=== PATIENT | female | born 1985 | race Caucasian/White ===

== ENCOUNTER 2019-12-19 13:45 | Emergency (ER) | payer OTHER, SELFPAY ==
--- NOTE | ~2019-12-19 | XR_ITS ---
EXAMINATION: XR chest 2V EXAM DATE: 12/19/2019 14:26 INDICATION: Cough and fever. TECHNIQUE: Frontal and lateral projections of the chest obtained and reviewed. There is no prior deborah dy for comparison. FINDINGS: The lungs are clear. There are no pleural effusions. The cardiomediastinal silhouette is within normal limits. There is no pneumothorax suspected. The bones and soft tissues are unremarkab le. IMPRESSION: Normal chest x-ray exam. Reviewed, dictated and finalized at location A. [employer]ESS DEVELOPER IMPRESSION: Normal chest x-ray exam.
--- NOTE | 2019-12-19 13:56 | ED.URI ---
HPI - URI/Sore Throat General Chief Complaint: Upper Respiratory Infection Stated Complaint: cough/weak/congestion Time Seen by Provider: 12/19/19 14:18 Source: patient and RN notes reviewed Mode of arrival: ambulatory Limitations: no limitations History of Present Illness HPI Narrative: 34-year-old female presents with concern for cough, congestion, fatigue, general malaise, sweats, chills. Reports symptoms started with a mild cough on Wednesday, however yesterday she began to have chills, sweats, fever, malaise. MD elicited complaint: cough Related Data Home Medications Medication Instructions Recorded Confirmed bupropion HCl 75 mg PO DAILY 12/19/19 12/19/19 clonazepam 2 mg DAILY 12/19/19 12/19/19 levothyroxine 100 mcg DAILY 12/19/19 12/19/19 Allergies Allergy/AdvReac Type Severity Reaction Status Date / Time No Known Allergies Allergy Unknown Verified 11/19/16 10:01 Review of Systems Review of Systems: Narrative: CONSTITUTIONAL: Reports malaise, chills, sweats, or fever. EYES: Denies visual changes, redness, or discharge. ENT: Reports rhinorrhea, congestion, and sore throat. Denies sinus pain, otalgia CARDIOVASCULAR: Denies chest pain, palpitations, or edema. RESPIRATORY: Reports cough. Denies dyspnea. GASTROINTESTINAL: Denies abdominal pain, nausea, vomiting, diarrhea SKIN: Denies rash or itching. MUSCULOSKELETAL: Reports myalgia. NEUROLOGIC: Reports headache. All systems reviewed & are unremarkable except as noted in HPI and below PMFSH Family History Family History (Updated 08/02/17 @ 13:14 by DOCTOR UNKNOWN) Father Family history of mental disorder Grandparent Family history of mental disorder Depression Cerebrovascular accident Diabetes mellitus Mother Family history of malignant neoplasm Social History Social History Smoking status: Never smoker Alcohol intake: never Gender identity (if verbalized by the patient): Female Comments At time of signature, agree with nursing past medical, surgical, social and family history. There is no relevant family history pertinent to the presenting complaint Exam Narrative: Exam Narrative: GENERAL: Nontoxic-appearing, well-nourished, and in no acute distress. HEAD: Normocephalic EYES: PERRLA, conjunctivae clear ENT: Nares clear, turbinates edematous and erythematous, clear discharge. Mucous membranes moist. TM pearly anand with dull light reflex bilaterally; no tragal tenderness. Oropharynx erythematous without lesions. Tonsils not enlarged and without exudate, no drooling, no hoarseness, no trismus. NECK: Supple. No lymphadenopathy CHEST: Clear to auscultation, breath sounds equal. No wheezing, rhonchi, rales, or stridor. No respiratory distress, speaks in full sentences. Cough noted HEART: Regular rate and rhythm. No murmur heard. Normal peripheral pulses. SKIN: Warm, clammy, no rash. NEURO: Alert and oriented x3. PSYCH: Normal mood and affect Course Course Emergency Course: Patient is aware of diagnosis, understands and agrees to treatment plan. Anticipatory guidance given. Patient agrees to follow-up as directed and is aware of reasons to seek care at the emergency department. Portions of this record may have been created with voice recognition software Vital Signs Vital signs: Vital Signs Temperature 103.3 F H 12/19/19 14:11 Pulse Rate 123 H 12/19/19 14:11 Respiratory Rate 20 12/19/19 14:11 Blood Pressure 119/79 12/19/19 14:11 Pulse Oximetry 97 12/19/19 14:11 Temperature 103.3 F H 12/19/19 14:11 Pulse Rate 123 H 12/19/19 14:11 Respiratory Rate 20 12/19/19 14:11 Blood Pressure 119/79 12/19/19 14:11 Pulse Oximetry 97 12/19/19 14:11 Reviewed. MDM - URI/Sore Throat MDM Narrative Medical decision making narrative: Differential diagnosis considered: Strep pharyngitis, allergic rhinitis, upper respiratory tract infection, sinusitis, rhinosinusitis, nasopharyngitis. viral pharyngitis, otitis media, otiti
[2019-12-19 14:11] VITALS: BP 119/79; PULSE 123; RESP 20; TEMP 39.6; O2SAT 97
[2019-12-19 14:50] VITALS: PULSE 116; RESP 20; TEMP 38.6
== END 2019-12-19 14:55 | disposition home or self-care (01) ==
PROVIDERS: Emergency Provider Nurse Practitioner; PCP Family Medicine
DX: R05 Cough (principal); R53.83 Other fatigue; R50.9 Fever, unspecified; J34.89 Other specified disorders of nose and nasal sinuses; J02.9 Acute pharyngitis, unspecified; F32.9 Major depressive disorder, single episode, unspecified; F41.9 Anxiety disorder, unspecified; E03.9 Hypothyroidism, unspecified
CPT/HCPCS: 71046; 86308; 87081; 87804; 87880; 99213; G0463

== ENCOUNTER 2021-05-01 21:24 | Emergency (ER) | payer OTHER, SELFPAY ==
[2021-05-01 21:29] VITALS: BP 148/92; PULSE 104; RESP 16; TEMP 36.8; O2SAT 96
--- NOTE | 2021-05-01 21:45 | ED.GENADULT ---
HPI - General Adult General Chief complaint: Skin/Abscess/Foreign Body Stated complaint: Rash on face and arms Time Seen by Provider: 05/01/21 21:44 Source: patient Mode of arrival: ambulatory Limitations: no limitations History of Present Illness HPI narrative: Patient just returned from a trip to [place] and has crusting blisters across her upper lip and face, she said they did do tingle itch. She also has a raised rash on both of her arms. She did use the sunscreen that is provided by the facility she used it on her whole body and only her arms seem to be affected. they were out of the water more than the rest of her body. She states she did have a history of fever blisters as a child but none as an adult. She denies any fever, any difficulty breathing. Onset (ago): day(s) Treatments prior to arrival: NSAID Related Data Home Medications Medication Instructions Recorded Confirmed bupropion HCl 75 mg PO DAILY 12/19/19 12/19/19 clonazepam 2 mg DAILY 12/19/19 12/19/19 levothyroxine 100 mcg DAILY 12/19/19 12/19/19 Allergies Allergy/AdvReac Type Severity Reaction Status Date / Time No Known Allergies Allergy Unknown Verified 05/01/21 21:25 Review of Systems Review of Systems: All systems reviewed & are unremarkable except as noted in HPI and below PMFSH Family History Family History Father Family history of mental disorder Grandparent Family history of mental disorder Depression Cerebrovascular accident Diabetes mellitus Mother Family history of malignant neoplasm Social History Social History Smoking status: Never smoker Alcohol intake: never Gender identity (if verbalized by the patient): Female Exam Const: General: no acute distress and alert Orientation/consciousness: patient oriented x3 HENMT: Mouth: Yes Normal oral and palatal mucosa present and Yes other (crusted vesicular lesions on labial fold on right, and at bubba border) Resp: Effort & Inspection: normal respiratory effort Auscultation: clear to auscultation bilaterally Skin: Rashes: rashes noted (fine rough rash, skin pink both arms. ) Extrem: General: no clubbing, cyanosis or edema Course Vital Signs Vital signs: Vital Signs Temperature 36.8 C 05/01/21 21:29 Pulse Rate 104 H 05/01/21 21:29 Respiratory Rate 16 05/01/21 21:29 Blood Pressure 148/92 H 05/01/21 21:29 Pulse Oximetry 96 05/01/21 21:29 Temperature 36.8 C 05/01/21 21:29 Pulse Rate 104 H 05/01/21 21:29 Respiratory Rate 16 05/01/21 21:29 Blood Pressure 148/92 H 05/01/21 21:29 Pulse Oximetry 96 05/01/21 21:29 Medical Decision Making MDM Narrative Medical decision making narrative: lesions appear to to be HSV 1. Will treat with valtrex due to size and pain. Her arms are most likely significant sun burn, will treat with topical steroid. Vital Signs Vital Signs: Vital Signs Temperature 36.8 C 05/01/21 21:29 Pulse Rate 104 H 05/01/21 21:29 Respiratory Rate 16 05/01/21 21:29 Blood Pressure 148/92 H 05/01/21 21:29 Pulse Oximetry 96 05/01/21 21:29 Temperature 36.8 C 05/01/21 21:29 Pulse Rate 104 H 05/01/21 21:29 Respiratory Rate 16 05/01/21 21:29 Blood Pressure 148/92 H 05/01/21 21:29 Pulse Oximetry 96 05/01/21 21:29 Discharge Plan Discharge Clinical Impression: Herpes simplex virus type 1 (HSV-1) dermatitis, Burn from the sun Patient Disposition: Home, Self-Care Condition: Stable Instructions: Antibiotic Form, Sunburn (ED), Oral Herpes Simplex Virus Infections (ED) Additional Instructions: Given an initial dose of the antiviral agent Valtrex in the emergency room, you need 1 more dose tomorrow at approximately 10 AM. This will help shorten the course of the lesions. Avoid sun exposure. You may apply the steroid cream to your arms as directed and once again
[2021-05-01] MEDS: valACYclovir HCL 500 MG TABLET 2000 MG PO (22:32)
[2021-05-01 22:40] VITALS: BP 110/84; PULSE 87; RESP 16; O2SAT 98
== END 2021-05-01 22:35 | disposition home or self-care (01) ==
PROVIDERS: Emergency Provider Emergency Medicine; PCP Family Medicine
DX: B00.9 Herpesviral infection, unspecified (principal); L30.9 Dermatitis, unspecified; L55.9 Sunburn, unspecified
CPT/HCPCS: 99283; A9270

== ENCOUNTER 2023-05-18 14:01 | Outpatient (CLI) | payer OTHER, SELFPAY ==
--- NOTE | ~2023-05-18 | XR_ITS ---
XR thoracic spine 3V DATE: 05/18/2023 14:28 INDICATION: Back pain TECHNIQUE: AP, lateral, swimmer views COMPARISON: None FINDINGS: Severe degenerative disc disease and uncovertebral joint spurring at C5-6. Mild thoracic dextroscoliosis. No fracture or dislocation or bone destruction of the thoracic spine. No paraspinal soft tissue thick ening. Minimal degenerative spurring of the thoracic spine. IMPRESSION: Mild thoracic dextroscoliosis and minimal degenerative spurring Severe degenerative disc disease and prominent bilateral uncovertebral joint spurring at C5-6 Reviewed, dictated and finalized at location L. IMPRESSION: Mild thoracic dextroscoliosis and minimal degenerative spurring Severe degenerative disc disease and prominent bilateral uncovertebral joint sp urring at C5-6
--- NOTE | ~2023-05-18 | XR_ITS ---
XR lumbar spine 2-3V DATE: 05/18/2023 14:28 INDICATION: Back pain TECHNIQUE: AP, lateral, coned lateral lumbosacral views COMPARISON: None FINDINGS: Minimal levoscoliosis of the lumbar spine. Normal alignment of the lumbar spine. No fractur e or bone destruction or spondylolisthesis is evident. The lumbar pedicles are intact. Mild loss of interspace height at L4-5. Moderate loss of interspace height and vacuum phenomenon at L 5-S1. The sacral iliac joints are intact. There is a prominent amount of fecal material throughout the colon. IMPRESSION: Moderate degenerative disc disease at L4-5 and L5-S1 Prominent amount of fecal material throughout the colon Reviewed, dictated and finalized at location L.
== END 2023-05-18 14:02 | disposition home or self-care (01) ==
LOC: ANHIMG 14:04
PROVIDERS: PCP Family Medicine; Visit Provider Family Medicine
DX: M51.36 Other intervertebral disc degeneration, lumbar region (principal); M41.9 Scoliosis, unspecified
CPT/HCPCS: 72072; 72100; 97110

== ENCOUNTER 2023-05-18 14:46 | Emergency (ER) | payer OTHER, SELFPAY ==
[2023-05-18 14:53] VITALS: BP 112/65; PULSE 67; RESP 16; TEMP 36.3; O2SAT 99
--- NOTE | 2023-05-18 14:54 | ED.SKABFB ---
HPI - Skin/Abscess/Foreign Bdy General Chief complaint: Skin/Abscess/Foreign Body Stated complaint: Rash Time Seen by Provider: 05/18/23 14:54 Source: patient Mode of arrival: ambulatory Limitations: no limitations History of Present Illness HPI narrative: 37-year-old female presents with complaint of rash to left arm, left leg, right leg for approximately 1 week. States started to left arm. Thought she was bit by mosquito. rash Sudeep significantly worse. Complaining of itching, no pain. Afebrile. All systems reviewed and negative except as noted above. Related Data Home Medications Medication Instructions Recorded Confirmed levothyroxine 100 mcg tablet 100 mcg DAILY 12/19/19 05/18/23 alprazolam 1 mg tablet 1 mg PO DAILY PRN anxiety 04/13/23 05/18/23 methadone 10 mg tablet 70 mg PO DAILY 04/13/23 05/18/23 trazodone 50 mg tablet 50 mg PO DAILY PRN Insomnia 04/13/23 05/18/23 levonorgestrel 21 mcg/24 hours (8 See Rx Instructions .Route .COMPLEX 05/18/23 05/18/23 yrs) 52 mg intrauterine device (Mirena) Allergies Allergy/AdvReac Type Severity Reaction Status Date / Time No Known Allergies Allergy Unknown Verified 05/18/23 14:49 Review of Systems Review of Systems: CONSTITUTIONAL: Denies fever, chills, or sweats. EYES: Denies visual changes, redness, or discharge. ENT: Denies rhinorrhea, congestion, sore throat, or otalgia. CARDIOVASCULAR: Denies chest pain, palpitations, or edema. RESPIRATORY: Denies cough or dyspnea. GASTROINTESTINAL: Denies abdominal pain, nausea, vomiting, or diarrhea. GENITOURINARY: Denies dysuria or hematuria. SKIN: Reports rash, itching bilateral lower extremities, left upper arm.. MUSCULOSKELETAL: Denies back pain, joint pain, or myalgia. NEUROLOGIC: Denies headache, numbness, or weakness. PSYCHIATRIC: Denies anxiety or depression. All other systems reviewed are negative, except as documented in HPI. [facility] Past Medical History Medical History Anxiety Depression Hypothyroidism Insomnia Mid back pain Opioid use disorder Surgical History Surgical History History of 2006, 2007 Family History Family History Father Family history of mental disorder Alcohol abuse Asthma Adrenal gland cancer Grandparent Family history of mental disorder Depression Cerebrovascular accident Diabetes mellitus Alcohol abuse Hypertension Heart disease Mother Family history of malignant neoplasm Alcohol abuse Depression Sibling Asthma Depression Daughter Asthma Depression Social History Social History Smoking status: Never smoker Alcohol intake: current Alcohol use details: rarely Substance use: never Substance use type: does not use Lack of Transportation: No Lack of Food: Never True Current Housing: I Have Housing Concerned About Future Housing: No Difficulty Paying Gas/Electric Bills: No Difficulty Paying for Meds: No Currently Unemployed: No Education: Trade/Vocational Certificate Difficulty w/ Childcare or Family Care: No Living arrangements: with family Occupation/Education: occupation Gender identity (if verbalized by the patient): Female Agree to blood products: Yes Comments At time of signature, agree with nursing past medical, surgical, social and family history. There is no relevant family history pertinent to the presenting complaint. Exam Narrative: GENERAL: This is a well-nourished, well-developed patient, in no apparent distress. HEAD: normocephalic, atraumatic. EYES: PERRL. Sclera clear/white. Vision is grossly intact. EARS: External ears normal NOSE: External nose normal NECK: Neck supple, non-tender without lymphadenopathy, masses or thyromegaly. CARDIOVASC
== END 2023-05-18 15:14 | disposition home or self-care (01) ==
PROVIDERS: Emergency Provider Nurse Practitioner Family; PCP Family Medicine
DX: L50.9 Urticaria, unspecified (principal); E03.9 Hypothyroidism, unspecified; F41.9 Anxiety disorder, unspecified; F32.A Depression, unspecified
CPT/HCPCS: 99213; G0463

== ENCOUNTER 2023-06-22 12:30 | Outpatient (RCR) | payer OTHER, SELFPAY ==
--- NOTE | 2023-05-11 08:49 | PTOPEVAL1 ---
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; have order for xray, not done yet; have not had PT in the past; ACTIVITY: work at [employer]; single mom with 3 children; doing all home and work tasks, with increased pain; Reported Pain Level Pain Score Self Report Additional Pain Score Comments pain range in the past week 2-7/10; burning, shooting pain; intermittent radicular into L LE to toes; stops me and cannot move; increase pain: sitting and then stand up; decrease pain: ibuprofen, epsom salt baths, stim unit; salon pas patches; use heat/ice PRN- heat helps more; with sleeping, awaken due to back pain 2x/wk; sleep in all positions--change constantly; Oswestry self assessment functional score of 30% limitation in activity level Assessment PT Clinical Summary Piper has the diagnosis of back pain. She reports chronic pain with intermittent radicular into L LE to toes. She is active, working 2 jobs and keeping up with 3 children. Pain increases with activity, transfer sit to stand and sleeping is disrupted. Self assessment score of 30% limitation in functioning. With the evaluation: she has poor standing posture of trunk and hips; standing extension of trunk more painful than flexion; tightness of L piriformis and anterior hip-quad; decreased strength and stability of trunk. Skilled PT services are indicated for modalities to decrease pain, therapeutic exercises to stretch and strengthen trunk and hips, with education for home exercises, posture and body mechanics. Plan of Care Interventions Hot Pack/Cold Pack,Manual Therapy,Mechanical Traction,Patient Education,Therapeutic Activities,Therapeutic Exercise,Ultrasound,Other Other Interventions taping, IASTM PT Services Indicated Yes Treatment Frequency and 1-2x/wk for 6 weeks, due to her work schedule, Duration cannot ma
--- NOTE | 2023-05-14 08:18 | OPREHPOC ---
Outpatient Therapy Plan of Care This is a Multidisciplinary Plan of Care that may contain components documented by all disciplines (PT, OT, and ST.) PT Problem 1 PT Problem #1 Knowledge Deficit PT Goal 1 Goal 1* indep with home exercise program 2* demonstrate correct lifting technique for floor /waist lifting PT Problem 2 PT Problem #2 Pain PT Goal 1 Goal 1* pain rating of 4/10 at worst 2* pt report times of NO pain 3* self assessment Oswestry score of 20% limitation 4* with sleeping, no awakening due to pain in back PT Problem 3 PT Problem #3 Impaired Flexibility PT Goal 1 Goal 1* with supine piriformis stretch, pt report L = R 2* prone knee flexion stretch to 130'/ant hip-quad length PT Problem 4 PT Problem #4 Impaired Strength PT Goal 1 Goal 1* pt able to perform mat strengthening exercises of trunk and hips 20 reps with good stability
--- NOTE | 2023-05-25 12:54 | PCPTNOTE ---
Pt was called into work and forgot to call and cancel her therapy appt.
--- NOTE | 2023-06-08 16:38 | PCPTNOTE ---
Pt no showed appt today.
--- NOTE | 2023-06-22 13:19 | PTOPPROG ---
Assessment and note entered by Shawna Knowles, PT Evaluation Information Assessment Status Progress Diagnosis low back pain Onset Dec 2022 Subjective Information Dori reports: back is about the same; stretches do help some; has been watching her back position have been busy doing alot of home cleaning and been more active the past week; has joined the gym--treadmill, weights for arms; PAIN range in the past week of 4-8/10; R and L lumbar; intermittent into L posterior leg to mid calf--shoots with sit to standing position changes --have to stop and brace herself due to bad pain; with sleeping, awaken due to back pain 2x/night; sit and standing about 30 min then pain worse; Assessment PT Clinical Summary Dori has received 5 PT sessions. She did not show for 2 scheduled appointments. Compared to the initial evaluation: pain rating was 2-7/10 and now 4-8/10- has been doing more home cleaning and lifting; reported sleeping tolerance is the same; radicular pain is less, was to toes, now to mid calf; improved posture and position of trunk with increased awareness; increase trunk and hip strength; increased flexibility of R anterior hip-quads; Self assessment functional Oswestry score is worse, from 30% to 50% limitation activity level. Education and good understanding of HEP, pain management techniques. The goals were partially met. Continue therapy treatment. Plan of Care Interventions Hot Pack/Cold Pack,Manual Therapy,Mechanical Traction,Patient Education,Therapeutic Activities,Therapeutic Exercise,Ultrasound,Other Other Interventions taping, IASTM PT Services Indicated Yes Treatment Frequency and 1x/wk for 5 weeks, due to her work & schedule can Duration only attend 1x/wk These treatments will address the objective and functional deficits as defined above. The patient will be advanced safely and appropriately in order for the patient to progress towards his/her prior level of function. Additional exercises will be introduced and as well as a comprehensive home exercise program upon discharge, if needed, ?to ensure carryover of functional gains achieved in the clinic. This treatment plan has been reviewed and agreement upon by the patient.
--- NOTE | 2023-06-22 13:20 | OPREHPOC ---
Outpatient Therapy Plan of Care This is a Multidisciplinary Plan of Care that may contain components documented by all disciplines (PT, OT, and ST.) PT Problem 1 PT Problem #1 Knowledge Deficit PT Goal 1 Goal 1* indep with home exercise program 2* demonstrate correct lifting technique for floor /waist lifting Progress Met Comment 06-22-23 met goals continue towards goal 1, to progress education for HEP PT Problem 2 PT Problem #2 Pain PT Goal 1 Goal 1* pain rating of 4/10 at worst 2* pt report times of NO pain 3* self assessment Oswestry score of 20% limitation 4* with sleeping, no awakening due to pain in back Progress Not Met Comment 06-22-23 goals not met; pain range of 4-8/10; self assessment score 50%; awaken 2x/night continue towards goals PT Problem 3 PT Problem #3 Impaired Flexibility PT Goal 1 Goal 1* with supine piriformis stretch, pt report L = R 2* prone knee flexion stretch to 130'/ant hip-quad length Progress Partially Met Comment 06-22-23 met goal 2 continue towards goal 1 PT Problem 4 PT Problem #4 Impaired Strength PT Goal 1 Goal 1* pt able to perform mat strengthening exercises of trunk and hips 20 reps with good stability Progress Partially Met Comment 06-22-23 improved with exercises reps 11-20 reps continue towards goal
--- NOTE | 2023-07-06 15:42 | PCPTNOTE ---
Pt NS this afternoons visit.
--- NOTE | 2023-07-13 15:35 | PCPTNOTE ---
Pt NS for the 2nd visit today.
--- NOTE | 2023-07-20 16:21 | PCPTNOTE ---
Pt no showed visit again today.
--- NOTE | 2023-07-26 15:56 | PTOPDC ---
Assessment and note entered by Shawna Knowles, PT Evaluation Information Assessment PT Clinical Summary PHYSICAL THERAPY DISCHARGE Dori has received 5 PT sessions from May 11 to Jun 22, then stopped attending therapy. Therefore, she will be discharged from PT at this time. The goals were not addressed. Plan of Care PT Services Indicated No
== END 2023-07-27 11:41 | disposition home or self-care (01) ==
LOC: ANHPT 12:30
PROVIDERS: PCP Family Medicine; Visit Provider Family Medicine
DX: M54.9 Dorsalgia, unspecified (principal); M54.50 Low back pain, unspecified
CPT/HCPCS: 97110; 97161; 97530; 99199

== ENCOUNTER 2023-09-27 08:46 | Emergency (ER) | payer OTHER, SELFPAY ==
[2023-09-27 09:06] VITALS: BP 113/75; PULSE 77; RESP 16; TEMP 36.1; O2SAT 98
--- NOTE | 2023-09-27 09:45 | ED.URI ---
HPI - URI/Sore Throat General Chief Complaint: Upper Respiratory Infection Stated Complaint: Sore Throat Time Seen by Provider: 09/27/23 09:35 Source: patient and RN notes reviewed Mode of arrival: ambulatory Limitations: no limitations History of Present Illness HPI Narrative: Patient presents today with a 5 day history of bilateral ear pain, postnasal drip, sore throat, and headache. She currently rates her pain 6/10 and has tried ibuprofen, Flonase, Mucinex, DayQuil, NyQuil without much relief. Related Data Home Medications Medication Instructions Recorded Confirmed alprazolam 1 mg tablet 1 mg PO DAILY PRN anxiety 04/13/23 09/27/23 trazodone 50 mg tablet 50 mg PO DAILY PRN Insomnia 04/13/23 09/27/23 levonorgestrel 21 mcg/24 hours (8 See Rx Instructions .Route .COMPLEX 05/18/23 09/27/23 yrs) 52 mg intrauterine device (Mirena) Allergies Allergy/AdvReac Type Severity Reaction Status Date / Time No Known Allergies Allergy Unknown Verified 09/27/23 09:11 Review of Systems Review of Systems: CONSTITUTIONAL: Denies body aches, fever, chills, or sweats. EYES: Denies visual changes, redness, or discharge. ENT: Denies rhinorrhea, congestion. + postnasal drip, sore throat, bilateral ear pain CARDIOVASCULAR: Denies chest pain, palpitations, or edema. RESPIRATORY: Denies cough or dyspnea. GASTROINTESTINAL: Denies abdominal pain, nausea, vomiting, or diarrhea. GENITOURINARY: Denies dysuria or hematuria. SKIN: Denies rash, itching, or wounds. MUSCULOSKELETAL: Denies back pain, joint pain, or myalgia. NEUROLOGIC: Denies numbness, tingling, or weakness.+ headache PSYCH: Denies depression or anxiety. [facility] Past Medical History Medical History Anxiety Degenerative joint disease (DJD) of lumbar spine Depression Hypothyroidism Insomnia Mid back pain Opioid use disorder Surgical History Surgical History History of 2006, 2007 Family History Family History Father Family history of mental disorder Alcohol abuse Asthma Adrenal gland cancer Grandparent Family history of mental disorder Depression Cerebrovascular accident Diabetes mellitus Alcohol abuse Hypertension Heart disease Mother Family history of malignant neoplasm Alcohol abuse Depression Sibling Asthma Depression Daughter Asthma Depression Social History Social History Smoking status: Never smoker Alcohol intake: current Alcohol use details: rarely Substance use: never Substance use type: does not use Lack of Transportation: No Lack of Food: Never True Current Housing: I Have Housing Concerned About Future Housing: No Difficulty Paying Gas/Electric Bills: No Difficulty Paying for Meds: No Currently Unemployed: No Education: Trade/Vocational Certificate Difficulty w/ Childcare or Family Care: No Living arrangements: with family Occupation/Education: occupation Gender identity (if verbalized by the patient): Female Agree to blood products: Yes Comments At time of signature, I have reviewed and agree with nursing past medical, surgical, social and family history unless otherwise noted. Please see nursing chart for further information. There is no relevant family history pertinent to the presenting complaint Exam Narrative: GENERAL: Mildly ill-appearing, well-nourished, and in no acute distress. HEAD: Normocephalic, atraumatic. EYES: EOMI. No redness or drainage. Conjunctivae normal. ENT: Mucous membranes pink and moist. Nares clear. No rhinorrhea. TMs normal bilaterally. Throat mildly erythematous. Tonsils 3+ without exudate. Uvula midline. NECK: Normal AROM. Supple. Bilateral tonsillar lymphadenopathy CHEST: No respirato
== END 2023-09-27 09:52 | disposition home or self-care (01) ==
PROVIDERS: Emergency Provider Nurse Practitioner; PCP Family Medicine
DX: J02.9 Acute pharyngitis, unspecified (principal); E03.9 Hypothyroidism, unspecified; F41.9 Anxiety disorder, unspecified; F32.A Depression, unspecified; Z79.899 Other long term (current) drug therapy
CPT/HCPCS: 87081; 87880; 99213; G0463

== ENCOUNTER 2024-02-06 11:14 | Outpatient (CLI) | payer OTHER, SELFPAY ==
--- NOTE | ~2024-02-06 | MR_ITS ---
MRI of the lumbar spine Clinical History: Back pain Technique: Axial T2-weighted images, and sagittal T1-weighted, T2-weighted, and T2 fat-sat images wer e acquired. Findings: There is no fracture or subluxation of the lumbar spine. Vertebral bodies maintain normal h eight and alignment. No suspicious bone marrow signal abnormality seen. At L1-L2, there is no disc bulge or herniation. There is minimal facet arthropathy. No central canal stenosis or neural foraminal narrowing. At L2-L3, there is mild degenerative disc narrowing. No disc bulge. There is mild facet arthropathy. No central canal stenosis or neural foraminal narrowing. L3-L4, there is minimal disc bulge and mild facet arthropathy. No central canal stenosis or neural fo raminal narrowing. At L4-L5, there is mild disc bulge and moderate facet arthropathy. No central canal stenosis. There i s mild bilateral neural foraminal narrowing. L5-S1, there is moderate degenerative disc narrowing. There is mild disc bulge and moderate to advanc ed facet arthropathy. No central canal stenosis. There is moderate to severe left neural foraminal na rrowing, and moderate right neural foraminal narrowing. Paravertebral soft tissues are unremarkable. Impression: Moderate degenerative spondylosis at L5-S1. Mild degenerative changes in the remainder of the lumbar spine. Reviewed, dictated and finalized at [facility]. Impression: Moderate degenerative spondylosis at L5-S1. Mild degenerative changes in the remainder of the lumbar spine.
== END 2024-02-06 11:15 | disposition home or self-care (01) ==
PROVIDERS: PCP Family Medicine; Visit Provider Anesthesiology Pain Medicine
DX: M47.897 Other spondylosis, lumbosacral region (principal); M47.896 Other spondylosis, lumbar region
CPT/HCPCS: 72148

== ENCOUNTER 2024-02-12 07:49 | Outpatient (CLI) | payer OTHER, SELFPAY ==
[2024-02-12 08:36] LABS: CRP < 0.5 mg/dL (<1.0); Rheumatoid Factor < 12.0 IU/ML (<12)
[2024-02-12 09:26] LABS: Erythrocyte Sedimentation Rate 14 mm/hr (0-20)
== END 2024-02-12 07:50 | disposition home or self-care (01) ==
LOC: ANHLAB 07:50
PROVIDERS: PCP Family Medicine; Visit Provider Anesthesiology Pain Medicine
DX: M79.18 Myalgia, other site (principal); G89.29 Other chronic pain
CPT/HCPCS: 36415; 85652; 86140; 86430

== ENCOUNTER 2024-04-05 06:39 | Outpatient (CLI) | payer OTHER, SELFPAY ==
--- NOTE | ~2024-04-05 | MR_ITS ---
MRI of the thoracic spine Clinical History: Radiculopathy Technique: Axial T2-weighted and gradient images, and sagittal T1-weighted, T2-weighted, and STIR sandra ges were acquired. Findings: There is no fracture or subluxation of the thoracic spine. Vertebral bodies maintain normal height and alignment. No focal bone marrow signal reality seen. No disc bulge or herniation seen at any thoracic level. There is no spinal canal stenosis or cord com pression at any thoracic level. No definite neural foraminal narrowing seen. No abnormal signal seen in the spinal cord. No epidural mass or collection seen. Paravertebral soft t issues are unremarkable. Impression: No significant abnormality seen. Reviewed, dictated and finalized at location . Impression: No significant abnormality seen.
--- NOTE | ~2024-04-05 | MR_ITS ---
MRI of the cervical spine Clinical History: Spondylosis Technique: Axial T2-weighted and gradient images, and sagittal T1-weighted, T2-weighted, and STIR sandra ges were acquired. Findings: There is no fracture or subluxation of the cervical spine. Vertebral bodies maintain normal height and alignment. No bone marrow signal abnormality seen. At C2-C3, there is no disc bulge or herniation. No spinal canal stenosis, cord compression or neural foraminal narrowing. At C3-C4, there is no significant disc bulge or herniation. No spinal canal stenosis, cord compressio n, or neural foraminal narrowing. At C4-C5, there is tiny disc osteophyte complex. No spinal canal stenosis, cord compression, or neura l foraminal narrowing. At C5-C6, there is no significant disc bulge or herniation. No spinal canal stenosis, cord compressio n, or neural foraminal narrowing. At C6-C7, there is no disc bulge or herniation. No spinal canal stenosis, cord compression, or neural foraminal narrowing. No abnormal signal seen in the spinal cord. Paravertebral soft tissues are unremarkable. Impression: Minimal degenerative change, as above. Reviewed, dictated and finalized at location [facility]. Impression: Minimal degenerative change, as above.
== END 2024-04-05 06:40 | disposition home or self-care (01) ==
PROVIDERS: PCP Family Medicine; Visit Provider Anesthesiology Pain Medicine
DX: M47.814 Spondylosis without myelopathy or radiculopathy, thoracic region (principal); M47.892 Other spondylosis, cervical region
CPT/HCPCS: 72141; 72146

== ENCOUNTER 2025-04-11 15:58 | Emergency (ER) | payer OTHER, SELFPAY ==
--- NOTE | 2025-04-11 15:59 | ED_ITS ---
HPI - Skin/Abscess/Foreign Bdy General Chief complaint: Skin/Abscess/Foreign Body Stated complaint: redness / raw nose Time Seen by Provider: 04/11/25 15:59 Source: patient Mode of arrival: ambulatory Limitations: no limitations History of Present Illness HPI narrative: Dori is a 39-year-old female patient presenting to the clinic today with complaints of redness/excoriated nose x2 weeks. She reports she was out mowing grass in thinks that she may have got a sunburn on her nose. States that the area did peel. Over the last 2 weeks has become more painful and swollen. States that the area finch. Does have some scabbing over the area. No history of MRSA in the past. Denies any nasal congestion. Denies any fevers, chills, body aches. Related Data Home Medications ?Medication ?Instructions ?Recorded ?Confirmed ?Last Taken ?Type alprazolam 1 mg tablet 1 mg PO DAILY PRN anxiety 04/13/23 04/11/25 Unknown History levonorgestrel (Mirena) See Rx Instructions .Route .COMPLEX 05/18/23 08/08/24 Unknown History Allergies Allergy/AdvReac Type Severity Reaction Status Date / Time sweet potato Allergy Mild Unknown Verified 04/11/25 16:05 Review of Systems Review of Systems: Pertinent positives per HPI. Patient denies any fever, chills, rash, headache, visual changes, dizziness, cough, shortness of breath, chest pain, palpitations, nausea, vomiting, diarrhea, constipation, abdominal pain, or any urinary issues. PMFSH Past Medical History Medical History Degenerative joint disease (DJD) of lumbar spine Opioid use disorder no longer on methadone since 04/2024 Insomnia Anxiety Depression Mid back pain Hypothyroidism Surgical History Surgical History History of 2007 Family History Family History Father Family history of mental disorder Alcohol abuse Asthma Adrenal gland cancer Grandparent Family history of mental disorder Depression Cerebrovascular accident Diabetes mellitus Alcohol abuse Hypertension Heart disease Mother Family history of malignant neoplasm Alcohol abuse Depression Sibling Asthma Depression Daughter Asthma Depression Social History Social History Smoking status: Never smoker Alcohol intake: current Alcohol use details: rarely Substance use: never Substance use type: does not use Lack of Transportation: No Lack of Food: Never True Current Housing: I Have Housing Concerned About Future Housing: No Difficulty Paying Gas/Electric Bills: No Difficulty Paying for Meds: No Currently Unemployed: No Education: Trade/Vocational Certificate Difficulty w/ Childcare or Family Care: No Living arrangements: with family Occupation/Education: occupation Gender identity (if verbalized by the patient): Female Agree to blood products: Yes Comments At the time of my signature, I reviewed and agree with the nursing past medical, surgical, social, and family history. There is no relevant family history pertinent to the patient complaint. Exam Narrative: General: Well-developed, well nourished, in no apparent distress Head: Normocephalic, atraumatic Eyes: Pupils equally round and reactive to light bilaterally, EOM intact, sclera and conjunctive clear, no discharge, lids normal Ears: TMs intact and clear, ear canals clear, no drainage, grossly hearing normal. Nose: Nares patent, no discharge, no turbinates inflammation, no sinus tenderness. Redness, erythema, and swelling to the external nose with some scabbing areas, tender to palpation without abscess Mouth: Oral pharynx without lesions or masses, good dentition, MMM. Neck: Supple, trachea midline, no enlargement of anterior or posterior cervical nodes, no thyroid masses or goiter palpable. Cardio: Regular rate and rhythm, s1 and s2 normal, no murmur appreciated. Resp: Clear to auscultation bilaterally, no rhonchi, rales, wheezing or rubs Course Course Emergency Course: Portions of this record may have been created with voice recognition software. Level of Care: Express Care Visit Vital Signs Vital signs: Vital signs reviewed MDM - Skin/Abscess/Foreign Bdy MDM Narrative Medical decision making narrative: At the time of visit patient is resting comfortably on the exam table. Patient appears to be nontoxic. Plan: I suspect patient has nasal cellulitis. Prescription for cephalexin and mupirocin cream was sent to the pharmacy. Supportive measures were discussed with the patient and they voiced understanding discharge instructions and agrees to treatment plan. Return precautions reviewed Differential Diagnosis Differential diagnosis: Likely abscess of skin or subcutaneous tissue, viral exanthem, dermatophytosis, urticaria, herpes zoster, allergic reaction to drug, cellulitis, eczema, insect bites, impetigo and contact dermatitis Discharge Plan Discharge Clinical Impression: Cellulitis of external nose Patient Disposition: Home Condition: Stable Instructions: Antibiotic Form, Cellulitis (ED) Additional Instructions: Keep area clean and dry May take Tylenol/Motrin as needed for pain May apply ice pack to help alleviate pain and swelling, Take cephalexin and apply mupirocin as prescribed Watch for signs and symptoms of infection- redness, streaking, swelling, purulent discharge, or increase in pain. Follow up with your PCP for suture removal or return to the Express care. Patient Language: [place] Prescriptions: New cephalexin 500 mg capsule 500 mg PO Q8H 7 Days Qty: 21 0RF mupirocin [Centany] 2 % ointment 1 applic topical BID 7 Days Qty: 22 0RF No Action Mirena 21 mcg/24 hours (8 yrs) 52 mg Intrauterine Device See Rx Instructions .ROUTE .COMPLEX Rx Instructions: 51 mcg intrauterinely alprazolam 1 mg tablet 1 mg PO DAILY PRN (Reason: anxiety) levothyroxine 100 mcg tablet See Rx Instructions .ROUTE .COMPLEX Qty: 90 1RF Dose Instruction: TAKE 1 TABLET BY MOUTH DAILY Rx Instructions: TAKE 1 TABLET BY MOUTH DAILY Follow-up/Referrals: Aneesh Ahn MD [Primary Care Provider] - Time of Disposition: 16:10 Quality NIHSS Nursing Documentation ED NIHSS nursing documentation: reviewed/agree
[2025-04-11 16:02] VITALS: BP 135/97; PULSE 114; RESP 16; TEMP 36.4; O2SAT 99
--- OUTSIDE RECORDS SUMMARY | 2025-04-11 17:55 | XMS_ITS | Data Portability ---
Author Organization [facility] [place] Address [address] [place] [address] [address] Care Team Providers Care Senior Project Architect Name Role Phone LIBRADO FOSTER Primary Care Provider [phone] Assessment Encounter Date Assessment Date Assessment LastModified by Organization Details LastModified Time 09/08/2023 09/08/2023 Annual gynecological exam performed. Patient will come back in a year unless there are new symptoms. Not available 09/08/2023 11:54:42 Plan of Treatment Reminders Order Date Submit Date Provider Last Modified By Organization Details Last Modified Time Details Appointments None recorded. Lab urinalysis, dipstick 2023 024 [email or web address] 1 [facility] [address], [place], [address], 10:43:34 test, urine 2022 023 [email or web address] [address], [address], [place], [address], 14:37:00 Referral None recorded. Procedures None recorded. Surgeries None recorded. Imaging None recorded. Medication Orders Macrobid 100 mg capsule 2023 024 [id number], [address], [place], [place], [id number], 4 10:42:48 Mirena 21 mcg/24 hr (up to 8 years) 52 mg intrauterin e device 2022 023 [email or web address] Not available 3 15:24:29 Patient TargetsNo targets recorded. Patient InstructionsNo instructions recorded. Reason for Referral None Reported. Results Created Date Observation Date Name Description Value Unit Range Abnormal Flag Note LastModifiedBy Organization Detail LastModifiedTime 09/08/20 23 09/08/2023 IMAGE GUIDE D PAP AND HPV REGAR DLESS image guided Pap, HPV regardless of Pap result SEE RESULT S BELOW CASE REPOR T: Cytol ogy Gynec ologi gregorio Repor t Case: [id number] Autho iban ciara Provi alex: Vashti Aguillon, COMPLAINT OPERATOR Colle cted: 09/08 1325 Order ing Locat ion: [place] [facility] Recei john: 09/09 1025 First Scree n: Valencia Stewart ret, CT Speci men: Scree evelyn Pap - Image d, Cervi x STATE MENT OF ADEQU ACY: Satis facto ry for evalu ation Trans forma tion zone compo nent prese nt FINAL DIAGN OSIS: Negat yasmin for Intra epith elial Lesio n or Sherley rojas (NIL) . Shift in becky sugge stive of bacte rial vagin osis. Elect brittany saini cait d by Valencia Stewart ret, CT on 09/11 at 7:00 AM ----- ----- ----- ----- ----- ----- ----- ----- ----- ----- ----- ----- ----- ----- ----- ----- ----- ---- HPV RESUL TS: HPV mRNA E6/E7 : No HPV mRNA Detec russell NOTE: This high risk HPV mRNA assay detec ts fourt een high- risk HPV types (16, 18, 31, 33, 35, 39, 45, 51, 52, 56, 58, 59, 66, 68) witho ut diffe renti ation . COMME NT: This speci men was revie wed by a Cytot echno logis t and/o r Patho logis t (as indic ated in this repor t) after evalu ation using the Thinp rep Imagi ng Syste m. CLINI GREGORIO INFOR MATIO N: Menst rual Statu s: LMP (if appli cable ): Clini gregorio Histo ry/Pr eviou s Pap: Type of Neopl lisa (if appli cable ): Signi fican t Clini gregorio Findi ngs: Other Histo ry: Hormo luisito (if appli cable ): PAP EDUCA GERRY L NOTE: The Pap Test is a scree evelyn test with an inher ent false negat yasmin rate. Liqui d-bas ed sampl ing may decre ase, but will not elimi maribel, false negat yasmin resul ts. A negat yasmin resul t does not precl ude the prese nce and/o r devel opmen t of disea se, since the prese nce of abnor mal cells in the sampl e depen ds on the locat ion of the lesio n and sampl ing techn ique. Mi nued regul ar scree evelyn is the best metho d of cance r preve ntion . If repor russell cytol ogic findi ng do not corre late with physi gregorio and/o r histo rical findi ngs, furth er inves tigat ion is recom clementina d, as clini michael warrerin nted. Not Available [facility] (Lab) [address], [place], [address], 09/13/2023 14:49:37 09/08/20 23 09/08/2023 CT/GC (ALESSANDRA) , THINP REP VIAL chlamydia trachomatis, PCR Negati ve negati ve Not Available [facility] (Lab) [address], [place], [address], 09/13/2023 14:49:38 09/08/20 23 09/08/2023 CT/GC (ALESSANDRA) , THINP REP VIAL neisseria gonorrhoeae, PCR Negati ve negati ve Not Available [facility] (Lab) [address], [place], [address], 09/13/2023 14:49:38 09/08/20 23 09/08/2023 TRICH OMONA S VAGIN SARINA (RRNA ) trichomonas vaginalis ribosomal RNA (rrna) Negati ve negati ve Not Available [facility] (Lab) [address] , [place], [address], 09/13/2023 14:49:38 09/14/20 23 09/14/2023 pregn sherrell test, urine HCG negati ve Not Available [place] [address], [place], [address], 09/14/2023 14:35:12 08/21/2008/21/2024 CULTU RE: URINE result report SEE RESULT S BELOW Test: Cultu re: Urine Speci men Sourc e: Urine - Clean Catch Speci men Type: Urine Speci men Date: 08/21 1023 Resul t Date: 08/23 0635 Resul t Statu s: Final resul t Abnor mal: No Resul ting Lab: [facility] [address] [facility] [address] Tel: CULTU RE ----- ----- ----- --- No growt h in 1 day (dete ction level of 10,00 0 colon ies / ml.) Not Available [facility] (Lab) [address] , [place], [address], 08/23/2024 07:38:48 08/21/20 24 08/21/2024 urina lysis , dipst ick Leukocytes +3 [facility] Available [facility] [address], [place], [address], 08/21/2024 10:40:26 08/21/20 24 08/21/2024 urina lysis , dipst ick Nitrite normal Not Available [place] [address], [place], [address], 08/21/2024 10:40:26 1008/21/2024 urina lysis , dipst ick Urobilinogen normal Not Available [facility] [address], [place], [address], 08/21/2024 10:40:26 08/21/20 24 08/21/2024 urina lysis , dipst ick Protein trace Not Available [place] [address], [place], [address], 08/21/2024 10:40:26 08/21/20 24 08/21/2024 urina lysis , dipst ick pH 5 Not Available [place] [address], [place], [address], 08/21/2024 10:40:26 08/21/20 24 08/21/2024 urina lysis , dipst ick Blood +++ Not Available [place] [address], [place], [address], 08/21/2024 10:40:26 08/21/20 24 08/21/2024 urina lysis , dipst ick Specific [place] 1.020 Not Available [facility], [place], [address], 08/21/2024 10:40:26 08/21/20 24 08/21/2024 urina lysis , dipst ick Ketone normal Not Available [place] [address], [place], [address], 08/21/2024 10:40:26 08/21/20 24 08/21/2024 urina lysis , dipst ick Bilirubin normal Not Available [facility] [address], [place], [address], 08/21/2024 10:40:26 08/21/20 24 08/21/2024 urina lysis , dipst ick Glucose normal Not Available [place] [address], [place], [address], 08/21/2024 10:40:26 08/21/20 24 08/21/2024 urina lysis , dipst ick Appearance normal Not Available Sharri myla [address], [place], [address], 08/21/2024 10:40:26 08/21/20 24 08/21/2024 urina lysis , dipst ick Color normal Not Available [place] [address], [place], [address], 08/21/2024 10:40:26 Result Notes None recorded. Problems Name Problem SNOMED Code Status Onset Date Resolution Date Notes Provider Name and Address Organization Details Recorded Time Insertion of intrauterin e contracepti ve device Active 2011 INSERTION OF IUD;Record ed Elsewhere: No Locatio n: [facility] Danni rce: EHR Chroni c: N Practice ID: [id number] Billa ble Time: 10:00:00 AM Not Available [facility] 15:58:46 Problem Notes None recorded. Procedures Surgical History Date Name Laterality Status Provider Name and Address Organization Details Recorded Time 09/14/20 23 IUD Removal completed JOSIAH Schaffer [address], [place], [address], [facility] 09/14/2023 14:53:28 09/14/20 23 IUD Insertion completed JOSIAH Schaffer [address], [place], [address], [facility] 09/14/2023 14:53:19 09/08/20 23 Date of Last Pap Smear completed Leana Edwards [facility] 09/14/2023 14:29:23 11/01/19 11 transfusion of blood product completed Judith Mahan [facility] 08/21/2024 18:04:34 12/28/19 08 Caesarean Section completed [facility] 08/21/2024 18:03:52 11/01/19 08 Tubal Ligation completed [facility] 08/21/2024 18:04:19 11/01/19 08 transfusion of blood product completed [facility] 08/21/2024 18:04:37 11/04/19 07 section completed [facility] 08/21/2024 18:04:11 11/01/19 07 transfusion of blood product completed [facility] 08/21/2024 18:04:41 Imaging Results None recorded. Procedure Notes None recorded. Medical Equipment None Reported. Allergies No known drug allergies Medications Name Sig Start Date Stop Date Status Note LastModified by Organization Details LastModified Time Mirena 21 mcg/24 hr (up to 8 years) 52 mg intrauter ine device Take 1 device by intraute rine route. 2022 active Not Available Not Available Not Avai lable alprazola m 1 mg tablet take 1 tablet (1MG) by oral route 3 times every day active Not Available Not Available No t Available levothyro xine 100 mcg tablet active Not Available Not Available Not Available Prozac 20 mg capsule take 1 capsule (20MG) by oral route every day in the morning 09/14 completed Prescrib ed Elsewher e: Yes Loca tion: [facility] odify By: eedmonds Encount er DateTime : 10/02/20 11 10:00:00 AM Not Available Not Available Not Available Vitamin D2 1,250 mcg (50,000 unit) capsule take 1 capsule (29850CI ITS) by oral route every week 2010 active Prescrib ed Elsewher e: No Locat ion: [facility] odify By: eedmonds Encount er DateTime : 10/14/20 11 02:29:52 PM Not Available Not Available Not Available iron ER 325 mg (65 mg iron) capsule,e xtended release 09/14 completed Prescrib ed Elsewher e: Yes Loca tion: Hubert anthony [facility] M odify By: eedmonds Encount er DateTime : 10/02/20 11 10:00:00 AM Not Available Not Available Not Available nitrofura ntoin monohydra te/macroc rystals 100 mg capsule Take 1 capsule every 12 hours by oral route for 7 days. active Not Available Not Available No t Available trazodone active Not Available Not Zayra ilable Not Available Vitals Date Recorded Body height Body mass index (BMI) Body weight Systolic blood pressure Diastolic blood pressure Provider Name and Address Organization Details Last Updated DateTime 08/21/2024 165.1 cm 33.1 kg/m2 63195.88 g 119 mm[Hg] 79 mm[Hg] Judith Mahan [facility] 4 10:39:15 Date Recorded Body height Body mass index (BMI) Body weight Systolic blood pressure Diastolic blood pressure Provider Name and Address Organization Details Last Updated DateTime 09/08/2023 165.1 cm 35.6 kg/m2 61330.77 g 102 mm[Hg] 72 mm[Hg] Tamikatrue Lopez [facility] 3 11:55:43 Date Recorded Body height Body mass index (BMI) Body weight Systolic blood pressure Diastolic blood pressure Provider Name and Address Organization Details Last Updated DateTime 09/14/2023 165.1 cm 35.4 kg/m2 89534.17 g 114 mm[Hg] 74 mm[Hg] Leana Edwards [facility] 3 14:28:13 Date Recorded Body height Body mass index (BMI) Body weight Systolic blood pressure Diastolic blood pressure Provider Name and Address Organization Details Last Updated DateTime 10/12/2023 165.1 cm 34.8 kg/m2 86811.81 g 118 mm[Hg] 84 mm[Hg] Flor Orourke [facility] 3 09:41:21 Social History Question Answer Notes LastModified by Organizat ion Details LastModified Time Tobacco Smoking Status Never Smoker Leana eelna, [facility] 09/14/2023 14:32:15 How Many Years Have You Consumed Alcohol? 20 Information not available 09/08/2023 Are You Blind Or Do You Have Difficulty Seeing? No Information n ot available 09/08/2023 What Is Your Level Of Caffeine Consumption? Occasional Information not available 09/08/2023 How Much Tobacco Do You Chew? None Information not available 09/08/2023 In The 14 Days Before Symptom Onset, Have You Had Close Contact With A Laboratory-confirm ed COVID-19 While That Case Was Ill? No Information n ot available 09/08/2023 In The 14 Days Before Symptom Onset, Have You Had Close Contact With A Person Who Is Under Investigation For COVID-19 While That Person Was Ill? No Information not available 09/08/2023 Have You Been To An Area Known To Be High Risk For COVID-19? No [email or web address] Information not available 09/14/2023 Are You Deaf Or Do You Have Serious Difficulty Hearing? No Information not available 09/08/2023 What Type Of Diet Are You Following? REGULAR Information n ot available 09/08/2023 What Is The Highest Grade Or Level Of School You Have Completed Or The Highest Degree You Have Received? [id number] Information not available 09/08/2023 Are There Any Guns Present In Your Home? No Information not available 09/08/2023 Do You Use Protection During Sex? No Information not available 09/08/2023 Do You Use Your Seat Belt Or Car Seat Routinely? Yes Information not available 09/08/2023 Do You Have Smoke And Carbon Monoxide Detectors In Your Home? Yes Information not available 09/08/2023 How Much Tobacco Do You Smoke? No Information not available 09/08/2023 Do You Use Sunscreen Routinely? Yes Information not available 09/08/2023 Have You Used IV Drugs? Yes Information not available 09/08/2023 Sex: Unknown Functional Status Question Answer Note LastModified by Organizat ion Details LastModified Time Do you use any illicit or recreational drugs? No Information not available 09/08/2023 What is your level of alcohol consumption? Occasional Information not available 09/08/2023 Are you able to walk? 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 Occasional Information not available 09/08/2023 Mental Status Question Answer Note LastModified by Organization D etails LastModified Time Do you feel stressed (tense, restless, nervous, or anxious, or unable to sleep at night)? [id number] Information not available 09/08/2023 Family History Relationship Description Onset Age of this Age Resolved Age Notes LastModified by Organization Details LastModified Time Maternal Uncle Blood coagulation disorder Not available 2022 11:40:37 Daughter Asthma Not availabl e 09/08/2023 11:40:37 Daughter Anxiety disorder Not available 2022 11:40:37 Father Asthma Not available 09/08/2023 11:40:37 Father Malignant tumor of colon Not available 2022 11:40:37 Father Hypertensive disorder Not available 2022 11:40:37 Father Substance abuse Not available 2022 11:40:38 Paternal Grandmother Disorder of lung Not available 2022 11:40:38 Paternal Grandmother Myocardial infarction Not available 09/08 11:40:38 Paternal Grandmother Hypertensive disorder Not available 2022 11:40:38 Paternal Grandmother Heart disease Not available 2022 11:40:38 Mother Disorder of thyroid gland Not available 2022 11:40:38 Mother Anxiety disorder Not available 2022 11:40:38 Mother Depressive disorder Not available 2022 11:40:38 Mother Substance abuse Not available 2022 11:40:38 Mother Diabetes mellitus Not available 2022 11:40:38 Mother Mental disorder Not available 2022 11:40:38 Maternal Aunt Anxiety disorder Not available 2022 11:40:38 Maternal Grandmother Anxiety disorder Not available 2022 11:40:38 Maternal Grandmother Disorder of lung Not available 2022 11:40:38 Maternal Grandmother Myocardial infarction Not available 09/08 11:40:38 Maternal Grandmother Depressive disorder Not available 2022 11:40:38 Maternal Grandmother Heart disease Not available 2022 11:40:38 Maternal Grandmother Osteoporosis Not available 09/08/2023 11:40:38 Maternal Grandmother Substance abuse Not available 2022 11:40:38 Maternal Grandmother Mental disorder Not available 2022 11:40:38 Sister Asthma Not available 09/08/2023 11:40:38 Sister Anxiety disorder Not available 2022 11:40:38 Maternal Grandfather Myocardial infarction Not available 09/08 11:40:38 Maternal Grandfather Depressive disorder Not available 2022 11:40:38 Maternal Grandfather Hypertensive disorder Not available 2022 11:40:38 Maternal Grandfather Heart disease Not available 2022 11:40:38 Maternal Grandfather Diabetes mellitus Not available 2022 11:40:38 Paternal Grandfather Myocardial infarction Not available 09/08 11:40:38 Paternal Grandfather Heart disease Not available 2022 11:40:38 Medical History Condition Response Allergies (Food, seasonal, environmental ) N Other N Drug/Latex Allergies/Reactions N Breast Cancer N Blood Transfusion Y Lung Disease N Dermatologic Disorders N Defects or Inherited Disease N Breast Problem N Gestational Diabetes N Hematologic disorders N Anesthesia Complications N History of STI N Deep Vein Thrombosis N Polycystic ovary syndrome N Anxiety Disorder Y Autoimmune disease N Arthritis N Polyps N Infertility N History of abnormal pap N Acid Reflux (GERD) Y Cancer N Varicosities N Stroke N Neurologic/Epilepsy N Endometriosis N High Cholesterol N Headaches Y Fibromyalgia Y Kidney Disease N Heart Problems N Thyroid Problems Y Kidney or Bladder Problems N GI Problems Y Eating Disorder N Anemia Y Art (IVF or FET) N Psychiatric Illness N Ovarian Cancer N Diabetes N Pulmonary (TB, Asthma) Y Hepatitis/Liver Disease N No Past Medical History N Eczema N Urinary Tract Infection N Abuse/Domestic Violence N Asthma N Trauma/Violence N Depression/ depression Y Heart Disease N Pre-Eclampsia N Hypertension Y Osteoporosis N Thrombophilias N Gynecological History Statement/Question Response Abnormal Pap N Date of Last Mammogram Date of LMP 09/14/2023 On BCP's at Conception? N N Was last menstrual period normal N STIs/STDs N Duration of Flow (days) 14 Current Control Method IUD Age at First Child 18 Date of Last Colonoscopy Sexually Active? Y IUD Menses Monthly N Date of DEXA bone scan Age of first menstrual cycle 11 Date of Last Pap Smear 09/08/2023 Sexual Problems? N Desired Control Method IUD LMP Unknown N Obstetrics History GPAL:G 5 P 3 0 2 3 Type Value Full Term 3 Induced 1 Spontaneous 1 Living 3 Total 5 Past Encounters Encounter ID Performer Location Encounter Start Date Encounter Closed Date Diagnosis/Indication Diagnosis SNOMED-CT Code Diagnosis ICD10 Code Diagnosis Note [id number] JOSIAH Schaffer [place] [address] [address] 09/08/2023 11:24:18 09/08/2023 13:37:36 Gynecologic examination 46354970 Z11.51 Z11.3 Z11.8 [facility]UD ()d esires replacemen t - r/b discussedR TC for removal/re insertionp ap updatedgc/ ct/trich testing added to papblood STI panel declineden couraged annual exam with PCP Take Calcium with Vitamin D daily if not receiving in daily diet.It is strongly advised to have an annual flu shot and up can obtain at most pharmacies . If you have not had a TDap shot in the last 10 years you should obtain one as well. Discussed with patient & provided with informatio n regarding Gardisil vaccine to prevent the 4 strains for HPV that cause cervical cancer if under age 26.Encoura ge safe sexual practices, to use condoms and limit partners if not already in a monogamous relationsh ip.Do monthly self breast exams. Engage in daily exercise of low impact aerobic exercise 45-60 minutes 4-5 times weekly. Avoid tobacco and illicit drugs as well as using moderation with alcohol intake less than 1-2 8 oz beverages daily. This lifestyle behavior pattern will lead to less health conditions and longer life span. If BMI greater than 25 dietary consult advised. Patient received above instructio ns, and questions have been answered. If you have any questions please call or respond to this email. Patient was made aware of the patient portal and may obtain a paper copy of today's plan if desired. Contracept ion care management [id number] Z30.9 [id number] JOSIAH Schaffer [place] [address] [address] 09/14/2023 14:18:32 09/14/2023 17:19:09 Screening procedure 13901276 Z13.9 Insertion of intrauterine contraceptive device 72202699 Z30.430 UPT (-)She has been counseled on all of the r/b/a of placement of an intrauteri ne device that include but are not limited to uterine perforatio n, injury to cervix, vagina, bladder, and bowel.Risk s of bleeding due to injury or increased irregular bleeding due to progestin effect of the device. Risks of infection would be increased within the first 21 days of placement with concomitan t cervicitis . She understand s that the device will need to be removed in this instance due to increased risk of Pelvic inflammato ry disease. Patient is aware she is at higher risk for STD and if contracted she could lose her fertility. Pt is aware that if occurs that she should contact office immediatel y to rule out ectopic which could be life threatenin g. IUD will also need to be removed and this could cause miscarriag e. Patient also informed that in the event her strings are absent or embedded at the time of removal she may need to have the IUD surgically removed. She was informed of the above and properly consented. IUD removed w/o complicati on, IUD placed w/o complicati on. Patient should return to office after next period to check for string placement. Patient to expect irregular bleeding but should be seen in the ED if bleeding increases to soaking a pad an hour for at least 2 hours. She verbalized understand ing.RTC for string check in 4-6 weeks Contracept ion care management [id number] Z30.9 [id number] Vashti AguillonJOSIAH [place] [address] [address] 10/12/2023 09:33:11 10/12/2023 10:08:27 IUD check [id number] Z30.431 Patient is here for 4-6wk IUD string check.(+) IUD strings noted on exam She denies complicati ons, pain, or unpleasant side effects. Happy with this control method. Wishes to continue.R TC 09/2024 for WWE or sooner if needed Time spent in visit is a total of 20 mins with at least 50% of visit consisting of counseling and review of plan of care. [id number] SYLVIE GREENE MD [place] [address] [address] 08/21/2024 09:11:08 08/21/2024 10:53:20 Increased frequency of urination [id number] R35.0 Health Concerns Section Related Observation LastModified by Organization Detai ls LastModified Time None Recorded Concern Status LastModified by Organization Details LastModified Time None Recorded Advance Directives Directive None Recorded Payers Encounter Date Sequence Insurance Name Policy Number Policy Cheung Covered Member ID Cheung Member ID Guarantor Name 09/08/2023 1 [employer] ON OR AFTER 05/01/21 (MEDICAID REPLACEMENT - HMO) Dori Carvajal [id number] Dori Carvajal 09/14/2023 1 [employer] ON OR AFTER 05/01/21 (MEDICAID REPLACEMENT - HMO) Dori Carvajal [id number] Dori Carvajal 10/12/2023 1 [employer] ON OR AFTER 05/01/21 (MEDICAID REPLACEMENT - HMO) Dori Carvajal [id number] Dori Carvajal 08/21/2024 1 [employer] ON OR AFTER 05/01/21 (MEDICAID REPLACEMENT - HMO) Dori Carvajal [id number] Dori Carvajal Notes Date Note Type Note Provider Name and Address Organization Details Recorded Time 09/08/2023 text/html Annual GYNReport ed bypatient.Menstrual cycle:Normal menses Urinary symptoms:No hematuria; No incontinence Vulva:No genital lesion Vagina:Normal vaginal discharge Breast:No breast pain; No breast lump; No nipple discharge Current Contraception:Satis fied with current contraception; Intrauterine device (iud); Tubal ligation; BTL, mirena IUD for period control - inserted in 2011 Sexual complaints:No sexual complaints; No pain during intercourse; Normal libido Menopausal Symptoms:No menopausal symptoms; Normal vaginal lubrication Psychological symptoms:No depression; No anxiety; No PMDD Preventive measures:Encourage self breast examination; Encourage regular exercise; Encourage no tobacco use; Encourage regular mammograms starting age 40Notes:last pap 2010, unsure if she has ever had any abnormalmirena IUD , would like removal and reinsertion JOSIAH Schaffer [address], [place], [address], [facility] 09/08/2023 13:17:43 09/14/2023 text/html 38yopresents for IUD insertionhas BTL + IUD for period controlmirena IUD currently and desires removal/replacement JOSIAH Schaffer [address], [place], [address], [facility] 09/14/2023 17:13:25 10/12/2023 text/html 38yopresents for IUD checks/p Mirena IUD removal/re- insertion 3doing well since insertion, no issues JOSIAH Schaffer [address], [place], [address], [facility] 10/12/2023 09:53:22 OBGyn Episode Ob Episode Information Episode Created Date Number of Fetuses Patient Bloodtype Patient rh Status Prepregnancy Weight lbs Domestic Partner Domestic Partner Phone Father Name International Specialist Status 09/08/20 23 1 CLOSED Fetus Data First Name Last Name Admitted to NICU Weight (g) Sex Living Outcome Pediatric Complications Fetus ID Race Codes Race Delivery Type 3458.63 9 F Full Term [id number] Vaginal Delivery Mamadou Calculation Initial Mamadou Date Initial Exam Date Initial Exam Provider Initial Ultrasound Date Last Menstrual Period Date Ultra Sound Weeks Gestation 0 Eighteen To Twenty Week Mamadou Update Ultra Sound Date Fundal Height At Umbil Quickening Date Ultra Sound Latest Weeks Gestation Final Mamadou Confirmed By Final Mamadou Confirmed Date Final Mamadou Date Ultra Sound Latest Days Gestation 0 0 Menstrual History Last Menstrual Date Menses Monthly On Bcp Conception Prior Menses Frequency Hcg Plus Date Menarche Onset Age Delivery Information Delivery Date Delivery Type Labor Anesthesia Weeks Gestation Incision Type Labor Labor Length Hrs Delivered By Post Complications Tubal Sterilization Discharge Date Comments 4 39 Tyleigh ---HTN Discharge Information Feeding Method Contraceptive Method Maternal HG B and HCT Levels Ob Episode Information Episode Created Date Number of Fetuses Patient Bloodtype Patient rh Status Prepregnancy Weight lbs Domestic Partner Domestic Partner Phone Father Name International Specialist Status 09/08/20 23 1 CLOSED Fetus Data First Name Last Name Admitted to NICU Weight (g) Sex Living Outcome Pediatric Complications Fetus ID Race Codes Race Delivery Type 3458.63 9 M Full Term [id number] Primary Mamadou Calculation Initial Mamadou Date Initial Exam Date Initial Exam Provider Initial Ultrasound Date Last Menstrual Period Date Ultra Sound Weeks Gestation 0 Eighteen To Twenty Week Mamadou Update Ultra Sound Date Fundal Height At Umbil Quickening Date Ultra Sound Latest Weeks Gestation Final Mamadou Confirmed By Final Mamadou Confirmed Date Final Mamadou Date Ultra Sound Latest Days Gestation 0 0 Menstrual History Last Menstrual Date Menses Monthly On Bcp Conception Prior Menses Frequency Hcg Plus Date Menarche Onset Age Delivery Information Delivery Date Delivery Type Labor Anesthesia Weeks Gestation Incision Type Labor Labor Length Hrs Delivered By Post Complications Tubal Sterilization Discharge Date Comments 7 37 Dannie-- - blood transfuss ion Discharge Information Feeding Method Contraceptive Method Maternal HG B and HCT Levels Ob Episode Information Episode Created Date Number of Fetuses Patient Bloodtype Patient rh Status Prepregnancy Weight lbs Domestic Partner Domestic Partner Phone Father Name International Specialist Status 09/08/20 23 1 CLOSED Fetus Data First Name Last Name Admitted to NICU Weight (g) Sex Living Outcome Pediatric Complications Fetus ID Race Codes Race Delivery Type , [place] ous [id number] Mamadou Calculation Initial Mamadou Date Initial Exam Date Initial Exam Provider Initial Ultrasound Date Last Menstrual Period Date Ultra Sound Weeks Gestation 0 Eighteen To Twenty Week Mamadou Update Ultra Sound Date Fundal Height At Umbil Quickening Date Ultra Sound Latest Weeks Gestation Final Mamadou Confirmed By Final Mamadou Confirmed Date Final Mamadou Date Ultra Sound Latest Days Gestation 0 0 Menstrual History Last Menstrual Date Menses Monthly On Bcp Conception Prior Menses Frequency Hcg Plus Date Menarche Onset Age Delivery Information Delivery Date Delivery Type Labor Anesthesia Weeks Gestation Incision Type Labor Labor Length Hrs Delivered By Post Complications Tubal Sterilization Discharge Date Comments 3 Discharge Information Feeding Method Contraceptive Method Maternal HG B and HCT Levels Ob Episode Information Episode Created Date Number of Fetuses Patient Bloodtype Patient rh Status Prepregnancy Weight lbs Domestic Partner Domestic Partner Phone Father Name International Specialist Status 09/08/20 23 1 CLOSED Fetus Data First Name Last Name Admitted to NICU Weight (g) Sex Living Outcome Pediatric Complications Fetus ID Race Codes Race Delivery Type , Induced [id number] Mamadou Calculation Initial Mamadou Date Initial Exam Date Initial Exam Provider Initial Ultrasound Date Last Menstrual Period Date Ultra Sound Weeks Gestation 0 Eighteen To Twenty Week Mamadou Update Ultra Sound Date Fundal Height At Umbil Quickening Date Ultra Sound Latest Weeks Gestation Final Mamadou Confirmed By Final Mamadou Confirmed Date Final Mamadou Date Ultra Sound Latest Days Gestation 0 0 Menstrual History Last Menstrual Date Menses Monthly On Bcp Conception Prior Menses Frequency Hcg Plus Date Menarche Onset Age Delivery Information Delivery Date Delivery Type Labor Anesthesia Weeks Gestation Incision Type Labor Labor Length Hrs Delivered By Post Complications Tubal Sterilization Discharge Date Comments 5 Discharge Information Feeding Method Contraceptive Method Maternal HG B and HCT Levels Ob Episode Information Episode Created Date Number of Fetuses Patient Bloodtype Patient rh Status Prepregnancy Weight lbs Domestic Partner Domestic Partner Phone Father Name International Specialist Status 09/08/20 23 1 CLOSED Fetus Data First Name Last Name Admitted to NICU Weight (g) Sex Living Outcome Pediatric Complications Fetus ID Race Codes Race Delivery Type 3089.86 8704 F Full Term [id number] Repeat Mamadou Calculation Initial Mamadou Date Initial Exam Date Initial Exam Provider Initial Ultrasound Date Last Menstrual Period Date Ultra Sound Weeks Gestation 0 Eighteen To Twenty Week Mamadou Update Ultra Sound Date Fundal Height At Umbil Quickening Date Ultra Sound Latest Weeks Gestation Final Mamadou Confirmed By Final Mamadou Confirmed Date Final Mamadou Date Ultra Sound Latest Days Gestation 0 0 Menstrual History Last Menstrual Date Menses Monthly On Bcp Conception Prior Menses Frequency Hcg Plus Date Menarche Onset Age Delivery Information Delivery Date Delivery Type Labor Anesthesia Weeks Gestation Incision Type Labor Labor Length Hrs Delivered By Post Complications Tubal Sterilization Discharge Date Comments 8 39 Kristie blood transfuss ion Discharge Information Feeding Method Contraceptive Method Maternal HG B and HCT Levels
== END 2025-04-11 16:13 | disposition home or self-care (01) ==
PROVIDERS: Emergency Provider Nurse Practitioner Family; PCP Family Medicine
DX: J34.0 Abscess, furuncle and carbuncle of nose (principal); E03.9 Hypothyroidism, unspecified; F41.9 Anxiety disorder, unspecified; M47.816 Spondylosis without myelopathy or radiculopathy, lumbar region
CPT/HCPCS: 99213; G0463